=== PATIENT | male | born 1945 | race Two or more races ===

== ENCOUNTER 2024-01-18 12:48 | Inpatient (IN) | payer MEDICARE, OTHER ==
[~2024-01-18] VITALS: Ht 160 cm; Wt 76.2 kg
[2024-01-18 16:00] VITALS: BP 111/53; TEMP 97.6
[2024-01-18] MEDS ORDERED: Z GUARD REMEDY 4 OZ OINT TP PRN (17:30)
[2024-01-18] MEDS ORDERED: ACETAMINOPHEN 325 MG TABLET PO PRN (17:30)
[2024-01-18] MEDS ORDERED: ONDANSETRON HCL/PF 4 MG/2 ML VIAL IVP PRN (17:30)
[2024-01-18] MEDS: IV NS 0.9% 1,000 ML IV SCH (19:46)
[2024-01-18 20:00] VITALS: BP 112/61; TEMP 98.1; O2SAT 97
[2024-01-18 20:07] LABS: CALCIUM, SERUM 8.3 mg/dL (8.5-10.1); CREATININE 0.9 mg/dL (0.6-1.3); POTASSIUM 3.9 mmol/L (3.5-5.1)
[2024-01-18] MEDS: ENOXAPARIN SODIUM 40 MG/0.4 ML DISP.SYRIN SQ SCH (20:42)
[2024-01-18] MEDS: CEFEPIME 2 GM in IV D5W 100 ML IV SCH (20:42)
[2024-01-18] MEDS: VANCOMYCIN HCL 1.25 GM in IV D5W 250 ML IV SCH (21:14)
[2024-01-19] VITALS (12 sets, daily range): BP systolic 107–137; BP diastolic 48–75; TEMP 98.1–99.5; O2SAT 86–98
[2024-01-19 07:42] LABS: BASOPHILS % (AUTO) 0.2 % (0.0-2.0); EOSINOPHILS % (AUTO) 0.3 % (0.0-6.0); HEMATOCRIT 31 % (39-51); HEMOGLOBIN 11.2 g/dL (13.5-17.5); LYMPHOCYTES # (AUTO) 1.3 K/uL (0.8-4.8); LYMPHOCYTES % (AUTO) 9.8 % (20.0-44.0); MEAN CORPUSCULAR HEMOGLOBIN 33 PG (26.0-33.0); MEAN CORPUSCULAR HGB CONC 36 g/dl (31.0-36.0); MEAN CORPUSCULAR VOLUME 92 fL (80-96); MONOCYTES # (AUTO) 1.5 K/uL (0.1-1.30); NEUTROPHILS # (AUTO) 10.8 K/uL (1.8-8.9); NEUTROPHILS % (AUTO) 78.7 % (43.0-81.0); PLATELET COUNT (AUTO) 227 K/uL (150-450); RED BLOOD CELL COUNT(AUTO) 3.41 MIL/uL (4.5-6.0); RED CELL DISTRIBUTION WIDTH 14.2 % (11.5-15.0); WHITE BLOOD COUNT (AUTO) 13.7 K/uL (4.3-11.0)
[2024-01-19 07:45] LABS: CALCIUM, SERUM 8.3 mg/dL (8.5-10.1); CARBON DIOXIDE 28 mmol/L (21-32); CHLORIDE 100 mmol/L (98-107); CREATININE 0.7 mg/dL (0.6-1.3); GLUCOSE 88 mg/dL (74-106); MAGNESIUM 1.8 mg/dL (1.8-2.4); PHOSPHORUS 2.6 mg/dL (2.5-4.9); POTASSIUM 3.7 mmol/L (3.5-5.1); SODIUM SERUM 129 mmol/L (136-145); UREA NITROGEN, BLOOD 14 mg/dL (7-18)
[2024-01-19 08:09] LABS: CHOLESTEROL 79 mg/dL (<200); HDL CHOLESTEROL 34 mg/dL (40-60); LDL 40 mg/dL (0-99); TRIGLYCERIDES 58 mg/dL (30-150)
[2024-01-19] MEDS: PANTOPRAZOLE 40 MG TABLET.DR PO SCH (08:19)
[2024-01-19] MEDS ORDERED: GUAI-1121 PO (09:09)
[2024-01-19] MEDS ORDERED: CHOL100043 PO (09:09)
[2024-01-19] MEDS ORDERED: AMLO10TA4 PO (09:09)
[2024-01-19] MEDS ORDERED: LACT10SO58 PO (09:09)
[2024-01-19] MEDS ORDERED: OLAN2.5T3 PO (09:09)
[2024-01-19] MEDS ORDERED: MULT400T5 PO (09:09)
[2024-01-19] MEDS ORDERED: FERR-68 PO (09:09)
[2024-01-19] MEDS ORDERED: HYDR453. TP (09:09)
[2024-01-19] MEDS ORDERED: TRAZ150T75 PO (09:09)
[2024-01-19] MEDS ORDERED: METO100T14 PO (09:09)
[2024-01-19] MEDS ORDERED: MONT10TA22 PO (09:09)
[2024-01-19] MEDS ORDERED: DIVA-76 PO (09:09)
[2024-01-19] MEDS ORDERED: BREX1TAB PO (09:09)
[2024-01-19] MEDS ORDERED: CLON0.3P TD (09:09)
[2024-01-19] MEDS ORDERED: BREZTRI IH (09:09)
[2024-01-19] MEDS ORDERED: VALS1TAB8 PO (09:09)
[2024-01-19] MEDS ORDERED: BACI500P4 TP (09:09)
[2024-01-19] MEDS ORDERED: CLOT15CR5 TP (09:09)
[2024-01-19] MEDS ORDERED: DUTA0.5C37 PO (09:09)
[2024-01-19] MEDS ORDERED: LORA10TA7 PO (09:09)
[2024-01-19] MEDS ORDERED: LEVO75TA PO (09:09)
[2024-01-19] MEDS ORDERED: FLUT16SP16 BNOSTRILS (09:09)
[2024-01-19] MEDS ORDERED: TAMS-12 PO (09:09)
[2024-01-19] MEDS ORDERED: TRIA80CR12 TP (09:09)
[2024-01-19] MEDS ORDERED: ACET-2030 PO (09:09)
[2024-01-19] MEDS ORDERED: LACTULOSE 10 G/15 ML UDC (PYXIS) PO PRN (13:30)
[2024-01-19] MEDS: CLONIDINE HCL 0.3 MG/24H PTWK 1 EA PATCH TD SCH (14:24)
[2024-01-19] MEDS: IPRATROPIUM NEB FS 0.5 MG/2.5 ML AMPUL.NEB NEB SCH (14:41)
[2024-01-19] MEDS: ALBUTEROL FS 2.5 MG/3 ML VIAL.NEB NEB SCH (14:41)
[2024-01-19] MEDS: VANCOMYCIN 1 GM in IV D5W 250ml IV SCH (15:38)
[2024-01-19] MEDS: DIVALPROEX SODIUM 250 MG TABLET.DR PO SCH (16:29)
[2024-01-19] MEDS: METOPROLOL TARTRATE 50 MG TABLET PO SCH (21:17)
[2024-01-19] MEDS: OLANZAPINE 2.5 MG TABLET PO SCH (21:20)
[2024-01-19] MEDS: TRAZODONE 50 MG TABLET PO SCH (23:15)
[2024-01-19] MEDS: MONTELUKAST SODIUM (10MG) 10 MG TABLET PO SCH (23:15)
[2024-01-19] MEDS: DUTASTERIDE (0.5 MG) 0.5 MG CAPSULE PO SCH (23:15)
[2024-01-20] VITALS (15 sets, daily range): BP systolic 122–139; BP diastolic 60–72; TEMP 97.6–98.8; O2SAT 88–93
[2024-01-20] MEDS: LEVOTHYROXINE SODIUM 75 MCG TABLET PO SCH (07:53)
[2024-01-20 07:56] LABS: BASOPHILS % (AUTO) 0.3 % (0.0-2.0); EOSINOPHILS % (AUTO) 0.4 % (0.0-6.0); HEMATOCRIT 33 % (39-51); HEMOGLOBIN 11.4 g/dL (13.5-17.5); LYMPHOCYTES # (AUTO) 1.4 K/uL (0.8-4.8); LYMPHOCYTES % (AUTO) 12.1 % (20.0-44.0); MEAN CORPUSCULAR HEMOGLOBIN 32 PG (26.0-33.0); MEAN CORPUSCULAR HGB CONC 35 g/dl (31.0-36.0); MEAN CORPUSCULAR VOLUME 93 fL (80-96); MONOCYTES # (AUTO) 1.7 K/uL (0.1-1.30); MONOCYTES % (AUTO) 14.1 % (2.0-12.0); NEUTROPHILS # (AUTO) 8.5 K/uL (1.8-8.9); NEUTROPHILS % (AUTO) 73.1 % (43.0-81.0); PLATELET COUNT (AUTO) 251 K/uL (150-450); RED BLOOD CELL COUNT(AUTO) 3.55 MIL/uL (4.5-6.0); RED CELL DISTRIBUTION WIDTH 14.2 % (11.5-15.0); WHITE BLOOD COUNT (AUTO) 11.7 K/uL (4.3-11.0)
[2024-01-20 08:21] LABS: CALCIUM, SERUM 8.4 mg/dL (8.5-10.1); CREATININE 0.8 mg/dL (0.6-1.3); PHOSPHORUS 3.8 mg/dL (2.5-4.9); POTASSIUM 3.9 mmol/L (3.5-5.1)
[2024-01-20] MEDS: FERROUS SULFATE (325 MG) 325 MG/TAB TABLET PO SCH (09:01)
[2024-01-20] MEDS: FLUTICASONE PROPIONATE 16 GM BOTTLE NS SCH (09:01)
[2024-01-20] MEDS: AMLODIPINE BESYLATE 10 MG TABLET PO SCH (09:02)
[2024-01-20] MEDS: HYDROCHLOROTHIAZIDE 25 MG TABLET PO SCH (09:02)
[2024-01-20] MEDS: VALSARTAN 80 MG TABLET PO SCH (09:03)
[2024-01-21] VITALS (14 sets, daily range): BP systolic 111–148; BP diastolic 60–72; TEMP 97.3–98.4; O2SAT 83–100
[2024-01-21 09:00] LABS: BASOPHILS % (AUTO) 0.4 % (0.0-2.0); EOSINOPHILS # (AUTO) 0.2 K/uL (0.0-0.7); EOSINOPHILS % (AUTO) 2.2 % (0.0-6.0); HEMATOCRIT 33 % (39-51); HEMOGLOBIN 11.9 g/dL (13.5-17.5); LYMPHOCYTES # (AUTO) 1.7 K/uL (0.8-4.8); LYMPHOCYTES % (AUTO) 18.7 % (20.0-44.0); MEAN CORPUSCULAR HEMOGLOBIN 33 PG (26.0-33.0); MEAN CORPUSCULAR HGB CONC 36 g/dl (31.0-36.0); MEAN CORPUSCULAR VOLUME 91 fL (80-96); MONOCYTES # (AUTO) 1.5 K/uL (0.1-1.30); MONOCYTES % (AUTO) 16.3 % (2.0-12.0); NEUTROPHILS # (AUTO) 5.6 K/uL (1.8-8.9); NEUTROPHILS % (AUTO) 62.4 % (43.0-81.0); PLATELET COUNT (AUTO) 293 K/uL (150-450); RED BLOOD CELL COUNT(AUTO) 3.59 MIL/uL (4.5-6.0)
[2024-01-21 09:31] LABS: CALCIUM, SERUM 8.3 mg/dL (8.5-10.1); CREATININE 0.8 mg/dL (0.6-1.3); PHOSPHORUS 3.8 mg/dL (2.5-4.9); POTASSIUM 3.4 mmol/L (3.5-5.1)
[2024-01-21 10:11] LABS: THYROID STIMULATING HORMONE 0.86 uIU/mL (0.358-3.74); URIC ACID 4.9 mg/dL (2.6-7.2)
[2024-01-21] MEDS: POTASSIUM CHLORIDE 20 MEQ TAB.PRT.SR PO ONE (10:35)
[2024-01-21 11:06] LABS: ANISOCYTOSIS 1+; EOSINOPHILS % (MANUAL) 4 % (0-4); LYMPHOCYTES % (MANUAL) 22 % (16-48); MONOCYTES % (MANUAL) 17 % (0-11.0); NEUTROPHILS % (MANUAL) 57 (42-76); PLATELET ESTIMATE ADEQUATE
[2024-01-22] VITALS (11 sets, daily range): BP systolic 118–133; BP diastolic 59–68; TEMP 97.2–98.1; O2SAT 90–95
[2024-01-22 07:51] LABS: BASOPHILS # (AUTO) 0.1 K/uL (0.0-0.2); BASOPHILS % (AUTO) 0.7 % (0.0-2.0); EOSINOPHILS # (AUTO) 0.3 K/uL (0.0-0.7); EOSINOPHILS % (AUTO) 4.2 % (0.0-6.0); HEMATOCRIT 34 % (39-51); HEMOGLOBIN 12.1 g/dL (13.5-17.5); LYMPHOCYTES # (AUTO) 1.8 K/uL (0.8-4.8); LYMPHOCYTES % (AUTO) 22.8 % (20.0-44.0); MEAN CORPUSCULAR HEMOGLOBIN 33 PG (26.0-33.0); MEAN CORPUSCULAR HGB CONC 36 g/dl (31.0-36.0); MEAN CORPUSCULAR VOLUME 92 fL (80-96); MONOCYTES # (AUTO) 1.3 K/uL (0.1-1.30); MONOCYTES % (AUTO) 16.5 % (2.0-12.0); NEUTROPHILS # (AUTO) 4.4 K/uL (1.8-8.9); NEUTROPHILS % (AUTO) 55.8 % (43.0-81.0); PLATELET COUNT (AUTO) 328 K/uL (150-450); RED BLOOD CELL COUNT(AUTO) 3.71 MIL/uL (4.5-6.0); RED CELL DISTRIBUTION WIDTH 13.5 % (11.5-15.0)
[2024-01-22 08:15] LABS: CALCIUM, SERUM 8.7 mg/dL (8.5-10.1); CREATININE 0.7 mg/dL (0.6-1.3); PHOSPHORUS 3.5 mg/dL (2.5-4.9); POTASSIUM 3.4 mmol/L (3.5-5.1)
[2024-01-22] MEDS: POTASSIUM CHLORIDE 20 MEQ TAB.PRT.SR PO SCH (10:42)
[2024-01-22 12:28] LABS: EOSINOPHILS % (MANUAL) 4 % (0-4); LYMPHOCYTES % (MANUAL) 30 % (16-48); MONOCYTES % (MANUAL) 14 % (0-11.0); NEUTROPHILS % (MANUAL) 52 (42-76)
[2024-01-22 12:29] LABS: ANISOCYTOSIS 1+; PLATELET ESTIMATE ADEQUATE
[2024-01-23] VITALS (9 sets, daily range): BP systolic 124–130; BP diastolic 65–72; TEMP 98.1–98.2; O2SAT 88–96
[2024-01-23 07:41] LABS: CALCIUM, SERUM 8.2 mg/dL (8.5-10.1); CREATININE 0.8 mg/dL (0.6-1.3); POTASSIUM 3.8 mmol/L (3.5-5.1)
== END 2024-01-23 15:58 | DRG 871 ==
LOC: TELE1 15:25 → MEDSG1 01-22 10:14
PROVIDERS: ADMIT Nurse Practitioner Acute Care; ATTEND Nurse Practitioner Family
DX: A41.9 Sepsis, unspecified organism (principal); J15.9 Unspecified bacterial pneumonia; J96.01 Acute respiratory failure with hypoxia; R65.21 Severe sepsis with septic shock; E87.20 Acidosis, unspecified; E87.1 Hypo-osmolality and hyponatremia; F84.0 Autistic disorder; I10 Essential (primary) hypertension; E03.9 Hypothyroidism, unspecified; Z88.0 Allergy status to penicillin; Y95 Nosocomial condition; E87.6 Hypokalemia; R41.89 Other symptoms and signs involving cognitive functions and awareness; E86.1 Hypovolemia
CPT/HCPCS: 36415; 71045-TC; 80048-TC; 80061-TC; 80202-TC; 83735-TC; 84100-TC; 84443-TC; 84550-TC; 85025-TC; 93307-TC; 94640-TC; 94760-TC; 94761-TC; 94799-TC; 97110-TC; 97116-TC; 97530-TC; A4223; G0378; J0692; J1650; J3370; J7030; J7060